=== PATIENT | male | born 1995 | race Caucasian/White ===

== ENCOUNTER 2016-12-16 12:58 | Emergency (ER) | payer MEDICAID ==
[~2016-12-16] VITALS: Ht 167.6 cm; Wt 54.4 kg
[2016-12-16] MEDS ORDERED: NKM (13:11)
[2016-12-16 13:14] VITALS: BP 117/69
--- NOTE | 2016-12-16 13:26 | Emergency Room Report ---
History of Present Illness General Chief Complaint: Wound Recheck/Suture Removal Source: Patient Present Illness HPI The patient is a 21-year-old male presenting for suture removal. He states that he sustained a laceration to the left fifth finger one week prior and was seen at another emergency Department for sutures. He denies any complications. He denies any bleeding or discharge from the wound. He denies any numbness or tingling. He does state that he is unable to fully move the finger. He states that the other emergency department mentioned he may have a tendon injury. He denies any other symptoms including fever or chills Allergies: Coded Allergies: No Known Allergies (Unverified , 12/16/16) Patient History Past Medical History: see triage record Pertinent Family History: none Reviewed Nursing Documentation: PMH: Agreed, PSxH: Agreed Nursing Documentation-PM Past Medical History: No Stated History Review of Systems All Other Systems: negative except mentioned in HPI Physical Exam Vital Signs Date Time Temp Pulse Resp B/P (MAP) Pulse Ox O2 Delivery O2 Flow Rate FiO2 12/16/16 13:06 97.9 77 16 117/69 98 Room Air Sp02 EP Interpretation: reviewed, normal General Appearance: no apparent distress, alert, GCS 15, non-toxic Head: normocephalic, atraumatic Eyes: bilateral eye normal inspection, bilateral eye PERRL ENT: hearing grossly normal, normal pharynx, no angioedema, normal voice Neck: full range of motion, supple/symm/no masses Musculoskeletal: decreased range of motion - Unable to flex at the L 5th PIPJ, tender - TTP over the L 5th digit laceration site Neurologic: alert, oriented x3, responsive, motor strength/tone normal, sensory intact, speech normal Psychiatric: judgement/insight normal, memory normal, mood/affect normal, no suicidal/homicidal ideation Skin: normal color, no rash, warm/dry, well hydrated, wd healing/no infection noted, laceration - L 5th digit palmar surface Medical Decision Making PA Attestation Dr. Madison is my supervising physician. Patient management was discussed with my supervising physician Diagnostic Impression: Primary Impression: Visit for suture removal Additional Impression: Tendon injury ER Course The patient is a 21-year-old male presenting for suture removal. Differential diagnosis considered: Wound infection, nonhealing wound, cellulitis , abscess, tendon laceration, among others PE: NAD L 5th digit. [address] palmar surface[address] unable to bend at 5th PIPJ. SILT Suture removal: 3 simple interrupted sutures were removed without complication. No bleeding or discharge. Wound is well approximated. No surrounding erythema. The patient was informed that since she is unable to bend the left fifth finger , he will need to follow up with a hand specialist as soon as possible. He agrees. ER precautions are given Last Vital Signs Date Time Temp Pulse Resp B/P (MAP) Pulse Ox O2 Delivery O2 Flow Rate FiO2 12/16/16 13:14 97.9 16 117/69 98 Room Air 12/16/16 13:06 77 Status: improved Disposition: HOME, SELF-CARE Condition: Improved Referrals: DIVYA CONWAY,REFERRING (PCP) MAYE EASLEY Dec 16, 2016 13:26
[2016-12-16 13:39] VITALS: BP 117/69
== END 2016-12-16 13:35 | disposition home or self-care (01) ==
LOC: EMR 13:20
DX: S61.217D Laceration without foreign body of left little finger without damage to nail, subsequent encounter (principal); W45.8XXD Other foreign body or object entering through skin, subsequent encounter; Z48.02 Encounter for removal of sutures
CPT/HCPCS: 99282

== ENCOUNTER 2017-06-30 13:09 | Emergency (ER) | payer MEDICAID ==
[~2017-06-30] VITALS: Ht 167.6 cm; Wt 54.4 kg
[~2017-06-30 13:09] MED LIST: NKM
--- NOTE | 2017-06-30 14:11 | Emergency Room Report ---
History of Present Illness General Chief Complaint: General Complaint Source: Patient Present Illness HPI 21-year-old male presents to the emergency department complaining of multiple episodes of non-bloody vomiting and nausea since this morning. Patient is complaining of inability to keep down foods or liquids. Patient reports heavy drinking of alcohol last night. Patient reports that he regularly consumes 5-6 beers per day. Patient denies history of alcohol withdraws. Patient reports marijuana use however denies he is within last 72 hours. Patient denies fevers , chills, abdominal tenderness, constipation, diarrhea, melena or blood in the vomit or stool. Patient denies recent travel or ill contacts. Denies CP, Palpitations, LOC, AMS, dizziness, Changes in Vision, Sensation, paresthesias, or a sudden severe headache. Pt. denies pain at this time. Allergies: Coded Allergies: No Known Allergies (Unverified , 12/16/16) Patient History Past Medical History: see triage record Past Surgical History: none Pertinent Family History: none Social History: Reports: alcohol use - regularly 5-6 beers/ day Reviewed Nursing Documentation: PMH: Agreed, PSxH: Agreed Nursing Documentation-PMH Past Medical History: No Stated History Review of Systems All Other Systems: negative except mentioned in HPI Physical Exam Vital Signs Date Time Temp Pulse Resp B/P (MAP) Pulse Ox O2 Delivery O2 Flow Rate FiO2 06/30/17 13:15 98.8 106 20 113/62 98 Room Air 98.8 Sp02 EP Interpretation: reviewed, normal General Appearance: alert, GCS 15, non-toxic, mild distress Head: normocephalic, atraumatic Eyes: bilateral eye normal inspection, bilateral eye PERRL ENT: hearing grossly normal, normal voice Neck: full range of motion Respiratory: lungs clear, normal breath sounds, speaking full sentences Cardiovascular #1: regular rate, rhythm Gastrointestinal: normal bowel sounds - hyperactive BS in all 4 quadrants, non tender, soft Rectal: deferred Genitourinary: normal inspection Musculoskeletal: back normal, gait/station normal, normal range of motion, non- tender Neurologic: alert, oriented x3, responsive, motor strength/tone normal, sensory intact, speech normal, grossly normal Psychiatric: judgement/insight normal Skin: normal color, no rash, warm/dry Lymphatic: no adenopathy Medical Decision Making PA Attestation Dr. mccollum is my supervising Physician whom patient management has been discussed with. Diagnostic Impression: Primary Impression: Alcohol dependence Qualified Codes: F10.20 - Alcohol dependence, uncomplicated Additional Impression: Gastritis due to alcohol without hemorrhage Qualified Codes: K29.20 - Alcoholic gastritis without bleeding ER Course Pt. presents to the ED c/o N/V since this am. reports heavy drinking last night. pt. reports regular ETOH use. Denies hx of ETOH withdraws. Ddx considered but are not limited to GE, colitis, acute appy, SBO, Cyclical Vomiting secondary to THC just to name a few. Vital signs: pt. is afebrile, H&PE are most consistent with GE most likely viral in etiology, no evidence to suggest acute abdomen on physical exam. ORDERS: -None required at this time, the dx is clinical. -Vital Signs were monitored and checked q15 mins. pt. VS remained stable and no indication of impending W/D. Pt. did not displays signs of agitation, tremors or delerium. ED INTERVENTIONS: -1000 NS iv hydration, -Zofran 4mg - GI Cocktail -Oral Fluid Challenge: pt. able to tolerate oral liquids. -Pt. reports feeling better. ED Return Precautions are given. d/w pt. AA, and other ETOH dependence resources. pt. reports he has appt. with a new therapist next week. DISCHARGE: At this time pt. is stable for d/c to home. Will provide printed patient care instructions, and any necessary prescriptions. Care plan and follow up instructions have been discussed with the patient prior to discharge. Last Vital Signs Date Time Temp Pulse Resp B/P (MAP) Pulse Ox O2 Delivery O2 Flow Rate FiO2 06/30/17 13:15 98.8 106 20 113/62 98 Room Air 98.8 Disposition: HOME, SELF-CARE Condition: Stable Patient Instructions: Alcohol Abuse and Nutrition, Alcoholic Liver Disease, Gastritis, Adult, [id number] Additional Instructions: Take medications as directed. Pt. Requests AMA Prior to US Imaging. Follow up with a Primary Care Provider in 3-5 days, even if your symptoms have resolved. --Please review list of primary care clinics, if you do not already have a primary care provider Return sooner to ED if new symptoms occur, or current symptoms become worse. - Please note that this Emergency Department Report was dictated using Dragon solvent plant operator technology software, occasionally this can lead to erroneous entry secondary to interpretation by the dictation equipment. Rafia Ocampo Jun 30, 2017 14:11
[2017-06-30 14:41] VITALS: BP 107/63
[2017-06-30] MEDS ORDERED: Lidocaine 2% Visc 15ml soln ORAL ONE (16:15)
[2017-06-30] MEDS ORDERED: Mylanta II UD 30ml ORAL ONE (16:15)
[2017-06-30 16:57] VITALS: BP 122/73
== END 2017-06-30 16:57 | disposition home or self-care (01) ==
LOC: EMR 14:10
DX: K29.20 Alcoholic gastritis without bleeding (principal); F10.20 Alcohol dependence, uncomplicated
CPT/HCPCS: 96361; 96374; 96375; 99284; J2405

== ENCOUNTER 2018-03-01 12:36 | Emergency (ER) | payer MEDICAID ==
[~2018-03-01] VITALS: Ht 167.6 cm; Wt 54.4 kg
--- NOTE | 2018-03-01 15:35 | Diagnostic Imaging Report ---
Indication: Neck pain. Technique: Continuous helical imaging of the cervical spine was obtained transaxially from the skull base to the upper thoracic spine. 2-D coronal and sagittal reformatted images were obtained. Automatic Exposure Control was utilized. Total Dose length Product (DLP): 248.[address] Dose Index Volume (CTDIvol): 10.71 mGy Comparison: None Findings: There is reversal cervical lordosis which is probably due to muscle spasm. There is no evidence of an acute fracture or malalignment. Atlantoaxial alignment appears normal. Height and configuration of the vertebral bodies and intervertebral discs are within normal limits. Uncovertebral joints and facets are unremarkable. There is no soft tissue swelling. Impression: No acute injury. Reversal cervical lordosis probably due to muscle spasm. The CT scanner at [facility] is accredited by the [employer] and the scans are performed using dose optimization techniques as appropriate to a performed exam including Automatic Exposure control.
--- NOTE | 2018-03-01 15:48 | Emergency Room Report ---
History of Present Illness General Chief Complaint: Neck Pain Source: Patient Present Illness HPI 22-year-old male presents to the emergency department complaining of 10 out of 10 in severity right-sided neck pain and stiffness 2 days. He denies fevers chills, photophobia, dizziness, nausea or vomiting. 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 pain is worse with movement. pt. reports very localized sharp pain to the back of the head on the right side. URI symptoms several days prior to onset of neck pain. denies appreciable trauma or fall. Allergies: Coded Allergies: No Known Allergies (Unverified , 12/16/16) Patient History Past Medical History: see triage record Past Surgical History: none Pertinent Family History: none Reviewed Nursing Documentation: PMH: Agreed; PSxH: Agreed Nursing Documentation-PMH Past Medical History: No Stated History Review of Systems All Other Systems: negative except mentioned in HPI Physical Exam Vital Signs Date Time Temp Pulse Resp B/P (MAP) Pulse Ox O2 Delivery O2 Flow Rate FiO2 03/01/18 12:45 98.1 66 16 141/90 98 Room Air Sp02 EP Interpretation: reviewed, normal General Appearance: alert, GCS 15, non-toxic, moderate distress Head: normocephalic, atraumatic Eyes: bilateral eye normal inspection, bilateral eye PERRL ENT: hearing grossly normal, normal voice Neck: full range of motion, no bony tend, tender lateral - right lateral ttp in musculature Respiratory: lungs clear, normal breath sounds, speaking full sentences Cardiovascular #1: regular rate, rhythm Cardiovascular #2: 2+ radial (R) Musculoskeletal: back normal, gait/station normal, normal range of motion, tender - TTP to the right lateral aspect of the posterior neck, some occipital localized ttp Neurologic: alert, oriented x3, responsive, motor strength/tone normal, sensory intact, normal gait, speech normal, grossly normal Psychiatric: judgement/insight normal Skin: normal color, no rash, warm/dry, well hydrated Lymphatic: no adenopathy Medical Decision Making PA Attestation Dr. Payan is my supervising Physician whom patient management has been discussed with. Diagnostic Impression: Primary Impression: Neck muscle spasm Additional Impression: Strain of neck muscle Qualified Codes: S16.1XXA - Strain of muscle, fascia and tendon at neck level , initial encounter ER Course 22-year-old male presents to the emergency department complaining of 10 out of 10 in severity right-sided neck pain and stiffness 2 days. He denies fevers chills, photophobia, dizziness, nausea or vomiting. 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 pain is worse with movement. pt. reports very localized sharp pain to the back of the head on the right side. URI symptoms several days prior to onset of neck pain. denies appreciable trauma or fall. Ddx considered but are not limited to Fracture, dislocation, contusion, Sprain/ Strain/Spasm, Epidural abscess, Neoplastic mets. Vital signs: are WNL, pt. is afebrile H&PE are most consistent with musculoskeletal injury will perform imaging to r/ o fractures/dislocations. ORDERS: - CT C-spine -- Unremarkable ED INTERVENTIONS: - Soma po -Reglan PO -TYlenol PO -Soft cervical collar placed by technical photographer. -I do not identify an emergent condition at this time. With current presentation , pt. is stable for close outpatient follow up and conservative treatment. D/ w pt. to return promptly to ED with worsening or new symptoms.- Pt. verbalizes' understanding and agreement with proposed treatment plan. DISCHARGE: At this time pt. is stable for d/c to home. Will provide printed patient care instructions, and any necessary prescriptions. Care plan and follow up instructions have been discussed with the patient prior to discharge. CT/MRI/US Diagnostic Results CT/MRI/US Diagnostic Results : Imaging Test Ordered: CT C-Spine Impression unremarkable-Per official radiology report- Please see report for specific details. Last Vital Signs Date Time Temp Pulse Resp B/P (MAP) Pulse Ox O2 Delivery O2 Flow Rate FiO2 03/01/18 14:38 98.1 03/01/18 12:45 66 16 141/90 98 Room Air Disposition: HOME, SELF-CARE Condition: Stable Scripts Ibuprofen* (MOTRIN*) 600 Mg Tablet 600 MG ORAL THREE TIMES A DAY, #15 TAB 0 Refills Prov: Rafia Ocampo 03/01/18 Methocarbamol* (ROBAXIN*) 500 Mg Tablet 500 MG PO TID for 7 Days, #21 TAB 0 Refills Prov: Rafia Ocampo 03/01/18 Referrals: [facility],REFERR[facility] (PCP) Departure Forms: Return to Work Return to Work Date: Mar 05, 2018 Work Restrictions: None Return to Full Activity: Mar 05, 2018 Patient Instructions: Muscle Cramps and Spasms, [id number], Muscle Strain, [id number] Additional Instructions: Take medications as directed. Follow up with a Primary Care Provider in 3-5 days, even if your symptoms have resolved. --Please review list of primary care clinics, if you do not already have a primary care provider Return sooner to ED if new symptoms occur, or current symptoms become worse. Do not drink alcohol, drive, or operate heavy machinery while taking Robaxin ( Muscle Relaxers) as this may cause drowsiness. - Please note that this Emergency Department Report was dictated using [employer] Laboratories[employer] center representative technology software, occasionally this can lead to erroneous entry secondary to interpretation by the dictation equipment. Rafia Ocampo Mar 01, 2018 15:48
[2018-03-01 15:49] VITALS: BP 135/78
[2018-03-01] MEDS ORDERED: IBUPROFEN600 MG ORAL (15:49)
[2018-03-01] MEDS ORDERED: ROBAXIN500 MG PO (15:49)
[2018-03-01 15:56] VITALS: BP 135/78
== END 2018-03-01 15:56 | disposition home or self-care (01) ==
LOC: EMR 13:33
DX: S16.1XXA Strain of muscle, fascia and tendon at neck level, initial encounter (principal); X50.0XXA Overexertion from strenuous movement or load, initial encounter; Y92.89 Other specified places as the place of occurrence of the external cause; M62.838 Other muscle spasm
CPT/HCPCS: 72125; 99284